=== PATIENT | male | born 1965 | race Caucasian/White ===

== ENCOUNTER 2023-03-22 07:30 | Outpatient (RCR) | payer OTHER, SELFPAY | END 2023-07-20 23:59 | disposition home or self-care (01) | PROVIDERS: PCP Family Medicine; Visit Provider Physician Assistant | DX: M54.40 Lumbago with sciatica, unspecified side (principal); Z74.09 Other reduced mobility; R29.898 Other symptoms and signs involving the musculoskeletal system; Z51.89 Encounter for other specified aftercare | CPT/HCPCS: 97110; 97140; 97162 ==

== ENCOUNTER 2023-10-18 07:30 | Outpatient (CLI) | payer OTHER, SELFPAY | END 2023-10-18 07:31 | disposition home or self-care (01) | LOC: INJ CL 07:32 | PROVIDERS: PCP Family Medicine; Visit Provider Family Medicine | DX: M54.16 Radiculopathy, lumbar region (principal); M51.36 Other intervertebral disc degeneration, lumbar region | CPT/HCPCS: 62323; J0702; Q9966 ==

== ENCOUNTER 2023-10-21 16:45 | Outpatient (RCR) | payer OTHER, SELFPAY | END 2024-01-17 15:10 | disposition home or self-care (01) | PROVIDERS: PCP Family Medicine; Visit Provider Family Medicine | DX: M25.551 Pain in right hip (principal); M54.50 Low back pain, unspecified; Z51.89 Encounter for other specified aftercare | CPT/HCPCS: 97110; 97161 ==

== ENCOUNTER 2023-12-03 10:28 | Outpatient (CLI) | payer OTHER, SELFPAY | END 2023-12-03 10:29 | disposition home or self-care (01) | LOC: INJ CL 10:29 | PROVIDERS: PCP Family Medicine; Visit Provider Family Medicine | DX: M47.816 Spondylosis without myelopathy or radiculopathy, lumbar region (principal) | CPT/HCPCS: 64493; J0702; Q9966 ==

== ENCOUNTER 2024-01-03 16:45 | Outpatient (RCR) | payer OTHER, SELFPAY | END 2024-03-17 14:11 | disposition home or self-care (01) | PROVIDERS: PCP Family Medicine; Visit Provider Family Medicine | DX: M47.816 Spondylosis without myelopathy or radiculopathy, lumbar region (principal); M51.36 Other intervertebral disc degeneration, lumbar region; Z51.89 Encounter for other specified aftercare; M54.17 Radiculopathy, lumbosacral region | CPT/HCPCS: 97032; 97110; 97140; 97161; 97535 ==

== ENCOUNTER 2024-01-28 19:54 | Outpatient (CLI) | payer OTHER, SELFPAY | END 2024-01-28 19:55 | disposition home or self-care (01) | LOC: AMB 01-31 05:33 | PROVIDERS: PCP Family Medicine; Visit Provider Emergency Medicine | DX: S09.90XA Unspecified injury of head, initial encounter (principal); W10.9XXA Fall (on) (from) unspecified stairs and steps, initial encounter; Y92.008 Other place in unspecified non-institutional (private) residence as the place of occurrence of the external cause | CPT/HCPCS: A0425; A0427 ==

== ENCOUNTER 2024-05-29 07:17 | Inpatient (IN) | payer OTHER, SELFPAY ==
[2024-05-29] VITALS (32 sets, daily range): BP systolic 154–1701; BP diastolic 86–107; PULSE 63–114; RESP 18–26; TEMP 36.7–37.7; O2SAT 84–98; BMI 26.6; BMI 27.7
--- NOTE | 2024-05-29 07:54 | CRLHL7_ITS ---
For Patients: As a result of the Century Cures Act, medical imaging exams and procedure reports are released immediately into your electronic medical record. You may view this report before your referring provider. If you have questions, please contact your health care provider. INDICATION: Shortness of breath, post lumbar fusion surgery TECHNIQUE: Chest 2 views. COMPARISON: Chest radiograph 06/06/2019 FINDINGS: Cardiovascular and mediastinum: Heart size is normal. Unremarkable mediastinum. Lungs and pleural spaces: Lungs are clear. No sign of infiltrate or mass. No sign of pleural effusion. No pneumothorax. Bones and soft tissues: Moderate degenerative disease of the thoracic spine. IMPRESSION: No acute or significant findings. Dictated by Selene Calero MD @ 05/29/2024 8:24:42 AM (Electronically Signed)
[2024-05-29 08:11] LABS: Basophils Percent Auto 0.8 % (0.0-3.0); Eosinophils Percent Auto 0.8 % (0.0-7.0); Hematocrit 37.8 % (37.0-53.0); Hemoglobin* 12.6 gm/dL (13.5-17.5); Immature Granulocytes Pct Auto 0.4 %; Lymphocytes Percent Auto 23.6 % (20-44); Mean Corpuscular HGB Conc 33 gm/dL (32-36); Mean Corpuscular Hemoglobin 33 pg (26-34); Mean Corpuscular Volume 99 fL (80-100); Monocytes Percent Auto 16.7 % (0.0-11.0); Neutrophils Percent Auto 57.7 % (42.0-72.0); RDW Coefficient of Variation % 13.1 % (11.5-15.5); Red Blood Count 3.82 m/uL (4.30-5.90); White Blood Count* 2.46 K/uL (4.50-11.00)
--- NOTE | 2024-05-29 08:17 | ED_ITS ---
HPI - General Adult General Chief complaint: Weakness Stated complaint: Post surgical complication Time Seen by Provider: 05/29/24 07:53 Source: patient and family Mode of arrival: ambulatory Limitations: no limitations History of Present Illness HPI narrative: 58-year-old male presenting today with overall weakness. Patient states that he had back surgery on April 22 and was doing well postoperatively. Around weak to he was able to leave the house and go out to eat with family. States that his pain was well controlled and no longer needed pain medications. Perhaps a couple days after that he started to decline seen energy and strength. He states that he feels weak, has been having chills and shaking. Denies any measured fevers. Last night vomited 1 time and again this morning. Also had diarrhea this morning. Couple of days ago had difficulty urinating. believes that he has been dehydrated because he has little to no appetite for over a week. He also has a cough. Denies abdominal pain. Has a new rash on the left upper extremity that is nonpruritic. Past medical history significant for hypertension, depression, alcohol use disorder, tobacco use disorder, hyperlipidemia, history of stroke. Patient drinks 5-6 shots of liquor daily, smokes a half pack cigarettes per day Related Data Home Medications ?Medication ?Instructions ?Recorded ?Confirmed amlodipine 10 mg tablet 10 mg PO QDAY 01/22/22 atorvastatin 20 mg tablet 20 mg PO QDAY 01/22/22 bupropion HCl 150 mg 24 hr tablet, mg PO 01/22/22 extended release ibuprofen 200 mg tablet 600 mg PO PRN 01/22/22 losartan 50 mg tablet 50 mg PO QDAY 01/22/22 terazosin 5 mg capsule 5 mg PO QDAY 01/22/22 triamcinolone acetonide 0.1 % topical .as needed PRN 01/22/22 topical ointment Allergies Allergy/AdvReac Type Severity Reaction Status Date / Time lisinopril Allergy Severe Chest Pain Verified 05/29/24 09:27 Review of Systems Status of ROS: Reports: 10 or more systems reviewed and unremarkable except as noted in History and below [facility] Medical History Depression ?F32.A - Depression, unspecified (ICD-10) Hypertension ?I10 - Essential (primary) hypertension (ICD-10) History of stroke ?Z86.73 - Personal history of transient ischemic attack (TIA), and cerebral infarction without residual deficits (ICD-10) Hip pain ?M25.559 - Pain in unspecified hip (ICD-10) Alcoholic intoxication ?F10.929 - Alcohol use, unspecified with intoxication, unspecified (ICD-10) Surgical History History of back surgery ?Z98.890 - Other specified postprocedural states (ICD-10) History of 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) ?Z96.641 - Presence of right artificial hip joint (ICD-10) History of open reduction and internal fixation (ORIF) procedure (06/22/20) ?Z98.890 - Other specified postprocedural states (ICD-10) History of shoulder surgery (10/25/21) ?Z98.890 - Other specified postprocedural states (ICD-10) Family History Brother Alcohol dependence CHF (congestive heart failure) Father Bradycardia Stroke Mother Pacemaker Social History Smoking Status: Current every day smoker What tobacco products do you use: cigarettes Do you use any of these nicotine containing products: None Second hand tobacco smoke exposure: No How often do you have a drink containing alcohol: 4 or more times a week How many standard drinks containing alcohol do you have on a typical day: 3 or 4 How often do you have six or more drinks on one occasion: Weekly AUDIT-C Alcohol total score: 8 Non-prescribed substance use: denies use service: No Exam Narrative: Exam Narrative: Well-nourished well-developed patient in no acute distress. Alert and oriented x3. Answers questions appropriately. Mood and affect are appropriate. Thoughts are goal oriented and rational. No tangential or magical thinking noted. Patient speaks in full sentences without needing to catch his breath. HEENT: Normocephalic atraumatic. Pupils are equally round reactive to light. Extraocular muscles are intact. Conjunctivae are moist without any icterus noted. Moist mucous membranes. Posterior pharynx is normal. Neck is supple. Cardiovascular: Heart is regular rate and rhythm S1 and S2 are present without any murmurs. Lungs: End-expiratory wheezes bilaterally. Patient takes deep breaths without any discomfort. Abdomen: Soft and nontender nondistended with normal bowel sounds. No guarding or rebound. No masses or organomegaly appreciated. Extremities: Bilateral lower extremities are without edema. Normal DP and PT pulses. Skin: Well perfused. Patient has a petechial rash on the dorsal surface of the left hand going into the wrist. He also has the beginnings of petechial rashes on the bilateral lower extremities home wong areas. Rash on the upper extremities much more pronounced. Back: Normal appearance. Lumbar incision is healing appropriately without any evidence of infection or discomfort on palpation. Const: Vital Signs, click to edit/add: Vital Signs - 24 hr 05/29/24 07:27 05/29/24 07:54 05/29/24 08:18 Temperature 98.1 F Pulse Rate 63 Pulse Rate [Pulse Oximeter] 63 Respiratory Rate 24 Blood Pressure Blood Pressure [Ri ght Upper Arm] 200/102 H Pulse Oximetry 98 96 97 Oxygen Delivery Me thod Room Air 05/29/24 08:30 05/29/24 08:32 05/29/24 08:33 Temperature Pulse Rate 74 82 75 Pulse Rate [Pulse Oximeter] Respiratory Rate 22 Blood Pressure 177/99 H Blood Pressure [Ri ght Upper Arm] Pulse Oximetry 94 94 93 Oxygen Delivery Me thod 05/29/24 08:45 05/29/24 09:00 05/29/24 09:01 Temperature Pulse Rate 67 79 68 Pulse Rate [Pulse Oximeter] Respiratory Rate Blood Pressure 175/98 H Blood Pressure [Ri ght Upper Arm] Pulse Oximetry 93 86 L 84 L Oxygen Delivery Me thod 05/29/24 09:34 Temperature Pulse Rate 66 Pulse Rate [Pulse Oximeter] Respiratory Rate Blood Pressure Blood Pressure [Ri ght Upper Arm] Pulse Oximetry 94 Oxygen Delivery Me thod Course Course ED Course: EKG, read by me, shows normal sinus rhythm with a pulse of 66. Chest x-ray, read by me, does not show any acute pathology. CBC shows pancytopenia. Significantly Elevated D-dimer. Proceeded with chest CT PE protocol which did not show a PE but did show a potential foreign body in the trachea. I consulted with Dr. Ruiz, ditching machine operating engineer at [facility]. Recommends an out patient brochoscope. Unclear if this is the foreign body verses and accessory pathway. Remainder of blood work showed normal chemistries. Elevated lactate at 2.8. Normal CRP. LFTs unremarkable. Normal troponin. Normal lipase. Urine did show 3+ protein, 2+ blood and 10-25 RBCs. Triple swab negative. Patient received a L of normal saline while he was down here. Discussed patient with Dr. Soto who is accepting the patient for admission. Of note, patient does desaturate into the upper 80s when he falls asleep. Vital Signs Vital signs: Initial Vital Signs Temperature 98.1 F 05/29/24 07:27 Temperature Source Temporal Artery Scan 05/29/24 07:27 Pulse Rate 63 05/29/24 07:27 Pulse Rhythm Regular 05/29/24 07:27 Respiratory Rate 24 05/29/24 07:27 Blood Pressure 200/102 H 05/29/24 07:27 Blood Pressure Mean 134 H 05/29/24 07:27 Blood Pressure Position Supine 05/29/24 07:27 Pulse Oximetry 98 05/29/24 07:27 Oxygen Delivery Method Room Air 05/29/24 07:27 Vital Signs Temperature 98.1 F 05/29/24 07:27 Pulse Rate 63 05/29/24 07:27 Respiratory Rate 24 05/29/24 07:27 Blood Pressure 200/102 H 05/29/24 07:27 Pulse Oximetry 98 05/29/24 07:27 Oxygen Delivery Method Room Air 05/29/24 07:27 Temperature 98.1 F 05/29/24 07:27 Pulse Rate 66 05/29/24 09:34 Respiratory Rate 22 05/29/24 08:32 Blood Pressure 175/98 H 05/29/24 09:01 Pulse Oximetry 94 05/29/24 09:34 Oxygen Delivery Method Room Air 05/29/24 07:27 Medications Administered Medications: Discontinued Medications Generic Name Dose Route Start Last Admin Trade Name Freq PRN Reason Stop Dose Admin Sodium Chloride 1,000 mls @ 1,000 mls/hr 05/29/24 09:00 05/29/24 10:12 0.9 % Sodium Chloride 1000 Ml IV 05/29/24 09:59 Infused .Q1H SHYANNE Infusion Lorazepam 0.5 mg 05/29/24 08:51 05/29/24 09:04 Lorazepam 2 Mg/Ml Inj IVP 05/29/24 08:52 0.5 mg ONCE ONE Administration Ondansetron HCl 4 mg 05/29/24 08:51 05/29/24 08:56 Ondansetron 2 Mg/Ml Inj IVP 05/29/24 08:52 4 mg ONCE ONE Administration Medical Decision Making MDM Narrative Medical decision making narrative: A 58-year-old male with chronic alcohol use disorder, weakness, pancytopenia and hematuria. Patient will be admitted for further management. Lab Data Lab results reviewed: Yes I reviewed the patient's lab results Labs: Lab Results 05/29/24 05/29/24 05/29/24 Range/Units 07:55 08:00 Unknown WBC 2.46 L (4.50-11.00) K/uL RBC 3.82 L (4.30-5.90) m/uL Hgb 12.6 L (13.5-17.5) gm/dL Hct 37.8 (37.0-53.0) % MCV 99 (80-100) fL MCH 33 (26-34) pg MCHC 33 (32-36) gm/dL RDW Coeff of Josue 13.1 (11.5-15.5) % Plt Count 38 L* (140-440) K/uL Neut % (Auto) 57.7 (42.0-72.0) % Lymph % (Auto) 23.6 (20-44) % [place] % (Auto) 16.7 H (0.0-11.0) % Eos % (Auto) 0.8 (0.0-7.0) % Baso % (Auto) 0.8 (0.0-3.0) % Neut # (Auto) 1.40 L (1.7-7.0) K/uL Lymph # (Auto) 0.60 L (0.90-2.90) K/uL [place] # (Auto) 0.40 (0.00-0.90) K/UL Eos # (Auto) 0.00 (0.00-0.50) K/uL Baso # (Auto) 0.00 (0.00-0.30) K/uL Abs Immat Gran (auto) 0.00 (0.00-0.30) K/uL Imm/Tot Granulo (auto) 0.4 % Diff Slide Review Acceptable Review (Acceptable) D-Dimer Quant (PE/DVT) 6.74 H (0.00-0.50) ug/ml Sodium 136 (135-149) mmol/L Potassium 3.7 (3.6-5.1) mmol/L Chloride 104 (96-114) mmol/L Carbon Dioxide 23 (20-32) mmol/L Anion Gap 9 (7-15) mEq/L BUN 9 (7-30) mg/dL Creatinine 0.6 (0.5-1.5) mg/dL Estimated Creat Clear 126.67 Estimated GFR 111 ml/min Glucose 112 (60-115) mg/dL Lactate 2.8 H (0.5-1.9) mmol/L Calcium 9.5 (8.4-10.6) mg/dL Total Bilirubin 0.5 (0.1-1.5) mg/dL Direct Bilirubin 0.2 (0.0-0.5) mg/dL AST 86 H (12-35) U/L ALT 34 (4-50) U/L Alkaline Phosphatase 103 (40-150) U/L Troponin I 0.02 (0.01-0.04) ng/mL C-Reactive Protein < 0.5 L (0.5-1.0) mg/dL Total Protein 7.0 (6.0-8.3) g/dL Albumin 3.8 (3.3-5.0) g/dL Lipase 236 (23-300) U/L Urine Color Yellow (Yellow) Urine Appearance Clear (Clear) Urine pH 7.0 (5.0-8.5) Ur Specific [place] 1.025 (1.000-1.030) Urine Protein 3+ A (Negative) Urine Glucose (UA) Negative (Negative) Urine Ketones Negative (Negative) Urine Blood 2+ A (Negative) Urine Nitrite Negative (Negative) Urine Bilirubin Negative (Negative) Urine Urobilinogen 0.2 (0.2-1.0) Ur Leukocyte Esterase Negative (Negative) Urine RBC 10-25 A (0-2) Urine WBC 0-2 (0-5) Ur Squamous Epith Cells None (None-Few) Urine Bacteria Few A (None) SARS-CoV-2 (PCR) Negative SARS-CoV-2 (Negative) Influenza Type A (PCR) Negative PCR FLU A (Negative) Influenza Type B (PCR) Negative PCR FLU B (Negative) RSV (PCR) Negative PCR RSV (Negative) Imaging Data Chest x-ray: Attestation: I have reviewed the pertinent imaging results. Radiologist's impression: Chest 2 views. COMPARISON: Chest radiograph 06/06/2019 FINDINGS: Cardiovascular and mediastinum: Heart size is normal. Unremarkable mediastinum. Lungs and pleural spaces: Lungs are clear. No sign of infiltrate or mass. No sign of pleural effusion. No pneumothorax. Bones and soft tissues: Moderate degenerative disease of the thoracic spine. IMPRESSION: No acute or significant findings. CT scan - chest: Attestation: I have reviewed the pertinent imaging results. Radiologist's impression: CT chest PE was acquired with 95 cc Isovue 370 air IV contrast. COMPARISON: Same day chest radiograph FINDINGS: Heart and vasculature: Contrast opacification of the pulmonary arterial tree is adequate. No sign of pulmonary embolism. Heart size is normal. Top-normal ascending aorta measuring 3.8 cm and main pulmonary artery measuring 3.4 cm. Moderate coronary artery calcifications. Lungs and pleura: Thin linear radiolucent structure in the mid trachea measuring approximately 3.3 cm in craniocaudal dimension (6/148). No suspicious nodules or infiltrates. Left linear atelectasis. No pleural effusions, pleural thickening, or pneumothorax. Lymph nodes/mediastinum: No mediastinal, hilar, or axillary adenopathy. Chest wall: No masses. Upper abdomen: Hepatic steatosis Bones: Unremarkable for age. IMPRESSION: 1. No evidence of acute pulmonary embolism. 2. Thin linear radiolucent structure in the mid trachea measuring approximately 3.3 cm in craniocaudal dimension. This is indeterminate for tracheal debris or foreign body. Consider endoscopic evaluation. 3. Hepatic steatosis. ECG Data Attestation: I personally reviewed and interpreted this ECG as follows: Discharge Plan Discharge Clinical Impression: Weakness, Alcohol use disorder, Pancytopenia, Hematuria Patient Disposition: Admitted As Observation Condition: Stable Prescriptions: No Action bupropion HCl 150 mg tablet extended release 24 hr PO ibuprofen 200 mg tablet 600 mg PO PRN triamcinolone acetonide 0.1 % ointment topical .as needed PRN amlodipine 10 mg tablet 10 mg PO QDAY atorvastatin 20 mg tablet 20 mg PO QDAY terazosin 5 mg capsule 5 mg PO QDAY losartan 50 mg tablet 50 mg PO QDAY Follow Up/Referrals: Ward Kimble MD [Primary Care Provider] -
[2024-05-29 08:22] LABS: Platelet Count* 38 K/uL (140-440); Slide Review Reflex Yes
--- NOTE | 2024-05-29 08:24 | ED.NURSE ---
Critical platelet count 35, MD aware.
[2024-05-29 08:25] LABS: Albumin* 3.8 g/dL (3.3-5.0)
[2024-05-29 08:26] LABS: Chloride* 104 mmol/L (96-114); Potassium* 3.7 mmol/L (3.6-5.1); Sodium* 136 mmol/L (135-149)
[2024-05-29 08:28] LABS: Alanine Aminotransferase* 34 U/L (4-50); Alkaline Phosphatase* 103 U/L (40-150); Aspartate Amino Transferase* 86 U/L (12-35); Bilirubin Direct* 0.2 mg/dL (0.0-0.5); Bilirubin Total* 0.5 mg/dL (0.1-1.5); Creatinine* 0.6 mg/dL (0.5-1.5); Est. Creatinine Clearance* 126.67; Estimated Glomerular Filt Rate 111 ml/min
[2024-05-29 08:29] LABS: Anion Gap 9 mEq/L (7-15); Blood Urea Nitrogen* 9 mg/dL (7-30); Carbon Dioxide* 23 mmol/L (20-32); Glucose* 112 mg/dL (60-115)
[2024-05-29 08:30] LABS: Calcium* 9.5 mg/dL (8.4-10.6)
[2024-05-29 08:32] LABS: Slide Review Acceptable Review (Acceptable)
[2024-05-29 08:33] LABS: Lactate* 2.8 mmol/L (0.5-1.9)
[2024-05-29 08:37] LABS: C Reactive Protein* < 0.5 mg/dL (0.5-1.0)
[2024-05-29 08:40] LABS: Troponin I* 0.02 ng/mL (0.01-0.04)
[2024-05-29 08:45] LABS: D Dimer Quantitative* 6.74 ug/ml (0.00-0.50)
[2024-05-29 08:48] LABS: Lipase* 236 U/L (23-300)
[2024-05-29] MEDS: 0.9 % SODIUM CHLORIDE 1000 ml 1,000 ML IV (08:55)
[2024-05-29] MEDS: ONDANSETRON 2 MG/ML inj 4 MG IVP (08:56)
--- NOTE | 2024-05-29 09:03 | CRLHL7_ITS ---
For Patients: As a result of the Century Cures Act, medical imaging exams and procedure reports are released immediately into your electronic medical record. You may view this report before your referring provider. If you have questions, please contact your health care provider. INDICATION: Shortness of breath, elevated D-dimer, recent lumbar fusion TECHNIQUE: CT chest PE was acquired with 95 cc Isovue 370 air IV contrast. COMPARISON: Same day chest radiograph FINDINGS: Heart and vasculature: Contrast opacification of the pulmonary arterial tree is adequate. No sign of pulmonary embolism. Heart size is normal. Top-normal ascending aorta measuring 3.8 cm and main pulmonary artery measuring 3.4 cm. Moderate coronary artery calcifications. Lungs and pleura: Thin linear radiolucent structure in the mid trachea measuring approximately 3.3 cm in craniocaudal dimension (6/148). No suspicious nodules or infiltrates. Left linear atelectasis. No pleural effusions, pleural thickening, or pneumothorax. Lymph nodes/mediastinum: No mediastinal, hilar, or axillary adenopathy. Chest wall: No masses. Upper abdomen: Hepatic steatosis Bones: Unremarkable for age. IMPRESSION: 1. No evidence of acute pulmonary embolism. 2. Thin linear radiolucent structure in the mid trachea measuring approximately 3.3 cm in craniocaudal dimension. This is indeterminate for tracheal debris or foreign body. Consider endoscopic evaluation. 3. Hepatic steatosis. Please note that all CT scans at this facility use dose modulation, iterative reconstruction, and/or weight-based dosing when appropriate to reduce radiation dose to as low as reasonably achievable. Dictated by Mariam Abdi MD @ 05/29/2024 9:52:36 AM (Electronically Signed)
[2024-05-29] MEDS: LORazepam 2 MG/ML inj 0.5 MG IVP (09:04)
[2024-05-29 09:13] LABS: PCR FLU A Negative PCR FLU A (Negative); PCR FLU B Negative PCR FLU B (Negative); PCR RSV Negative PCR RSV (Negative); SARS PCR* Negative SARS-CoV-2 (Negative)
--- NOTE | 2024-05-29 09:15 | ED.NURSE ---
sats had dropped to low 80s. dr solis informed and placed 02 at 1l nc to increase sats to greater or equal 90%. admits that she has noted that his sats do get down in the 80s at home so she rehydrates him and takes deep breaths. does smoke.
[2024-05-29 09:43] LABS: Appearance Urine Clear (Clear); Bilirubin Urine Negative (Negative); Blood Urine 2+ (Negative); Color Urine Yellow (Yellow); Glucose Urine Negative (Negative); Ketones Urine Negative (Negative); Leukocyte Esterase Urine Negative (Negative); Nitrite Urine Negative (Negative); Protein Urine 3+ (Negative); Specific Gravity Urine 1.025 (1.000-1.030); Urobilinogen Urine 0.2 (0.2-1.0)
[2024-05-29 09:44] LABS: Bacteria Urine Few; WBC Urine 0-2 (0-5)
--- NOTE | 2024-05-29 11:00 | PM.IMHP1 ---
Hospitalist- H&P: HPI History of Present Illness Date Seen: 05/29/24 Chief complaint: Post surgical complication Narrative: Reilly Che is a 58 year old male who presented to the ER this morning with his for weakness. He's felt poorly for the past 10-14 days, has had vomiting and diarrhea over the past 2 days. No recent travel or sick contacts. No fevers. Had back surgery with Dr. Be on 04/22/24 (bilateral hemilaminotomies L4-L5, foraminal decompression L3-4 and L4-5/lumbar interbody and posterior fusion at L4-L5, PEEK interbody spacer at L4-L5. No operative or anesthetic complications during procedure. He did have postoperative hypotension, and many of his home blood pressure medications were stopped upon discharge. Canones great for the first two weeks postoperatively. No worsening pain, erythema, or drainage over surgical site. ER Course and Findings: - Hgb 12.6, platelets 38, WBC 2.46 (previous CBC in record normal, but this is from 2019) - lactate 2.8 - 10-25 RBCs on UA - with activity, noted to oxygen saturation in the 84-85% range, supplemental oxygen applied - elevated D-dimer, no acute PE on imaging but notable linear radiolucent structure in mid-trachea (indeterminate) - Dr. Phillips reviewed imaging findings with pulmonology, who felt that outpatient follow-up for this appropriate as there was no indication for acute intervention and no history of aspiration Given patient's weakness, intolerance of p.o. intake, pancytopenia, and hypoxic respiratory failure, he is admitted to the hospital. Lo present for H&P. Reilly endorses daily alcohol use (at least 6-7 shots of vodka daily), no history of significant withdrawal in the past. PCP is Dr. Kimble at the [facility]. Review of Systems Status of ROS: Reports: 10 or more systems reviewed and unremarkable except as noted in History and below Narrative: - rash noted over L hand/forearm in the last few days - intermittent morning cough, no hemoptysis - no bleeding gums - + easy bruising - no abdominal pain PFSH [facility] Medical History (Updated 05/29/24 @ 14:03 by Tiffanie Berger MD) Depression ?F32.A - Depression, unspecified (ICD-10) Hypertension ?I10 - Essential (primary) hypertension (ICD-10) History of stroke ?Z86.73 - Personal history of transient ischemic attack (TIA), and cerebral infarction without residual deficits (ICD-10) Hip pain ?M25.559 - Pain in unspecified hip (ICD-10) Surgical History (Updated 05/29/24 @ 12:47 by Tiffanie Berger MD) Status post left rotator cuff repair ?Z98.890 - Other specified postprocedural states (ICD-10) History of back surgery ?Z98.890 - Other specified postprocedural states (ICD-10) History of 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) ?Z96.641 - Presence of right artificial hip joint (ICD-10) History of open reduction and internal fixation (ORIF) procedure (06/22/20) ?Z98.890 - Other specified postprocedural states (ICD-10) History of shoulder surgery (10/25/21) ?Z98.890 - Other specified postprocedural states (ICD-10) Family History (Updated 05/29/24 @ 13:00 by Tiffanie Berger MD) Brother Alcohol dependence CHF (congestive heart failure) Father Bradycardia Stroke Mother Pacemaker CLL (chronic lymphocytic leukemia) Social History (Updated 05/29/24 @ 13:03 by Tiffanie Berger MD) Narrative: Lives with Lo (medical decision maker if needed), 4 adult children. Daily ETOH use, smokes 1/2 ppd. 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 What is your current living situation?: I presently have a place to live Problems where you live: no known problems Problems where you live details: 3 stairs up to living room from kitchen. 3 stairs outside into house In the past 12 months, utilities in danger of being shut off: no In the past 12 mos, have been you worried that your food would run out before you had money to buy more?: never true In the past 12 mos, the food you bought just didn't last and you didn't have money to buy more?: never true Highest level of school completed/degree received: Associate degree: occupational, technical, vocational program Smoking Status: Current every day smoker What tobacco products do you use: cigarettes Smoking packs per day: 10 Smoking cigarettes per day: 200.0 Smoking quit date/years: >15 years ago Do you use any of these nicotine containing products: None Second hand tobacco smoke exposure: Yes How often do you have a drink containing alcohol: 4 or more times a week Alcohol type: other Alcohol type details: vodka How many standard drinks containing alcohol do you have on a typical day: 5 or 6 How often do you have six or more drinks on one occasion: Daily or almost daily AUDIT-C Alcohol total score: 10 Non-prescribed substance use: denies use Caffeine: Yes (coffee) How often does anyone, including family, friends and others, physically hurt you: never How often does anyone, including family, friends and others, insult or talk down to you: never How often does anyone, including family, friends and others, threaten you with harm: never How often does anyone, including family, friends and others, scream or curse at you: never service: No Meds Home Medications and Allergies Home Medications ?Medication ?Instructions ?Recorded ?Confirmed ?Type losartan 50 mg tablet 50 mg PO QDAY 01/22/22 05/29/24 History terazosin 5 mg capsule 5 mg PO QDAY 01/22/22 05/29/24 History celecoxib 200 mg capsule 200 mg PO BID 05/29/24 05/29/24 History gabapentin 300 mg capsule 300 mg PO 3XD 05/29/24 05/29/24 History metoprolol succinate 25 mg 25 mg PO BID 05/29/24 05/29/24 History tablet,extended release 24 hr omeprazole 20 mg capsule,delayed 20 mg PO DAILY 05/29/24 05/29/24 History release Home Medication Comments: - confirmed with (primarily manages his medications) Allergies Allergy/AdvReac Type Severity Reaction Status Date / Time lisinopril Allergy Severe Chest Pain Verified 05/29/24 09:27 Exam Narrative: Exam Narrative: GEN: Alert and oriented, answering questions appropriately HEENT: Normal external ears, EOMIs bilaterally, no scleral icterus CV: RRR, No concerning murmurs R: No wheezing, mild bibasilar rhonchi, clears with deep breath Ab: Mild distention, + fluid wave. No caput medusae Back: Incision from recent surgery is well healed without erythema, edema, or drainage Ext: Trace BLE edema Skin: [place] rash over L lateral forearm/thumb, + blanching. No vesicles, no purpura, no spider angiomata Neuro: No focal deficits, no asterixis. Mild shakiness without resting tremor. Gait not observed Psych: Appropriate Const: Vital Signs, click to edit/add: Vital Signs - 24 hr 05/29/24 07:27 05/29/24 07:54 05/29/24 08:18 Temperature 98.1 F Pulse Rate 63 Pulse Rate [Pulse Oximeter] 63 Respiratory Rate 24 Blood Pressure Blood Pressure [Ri ght Upper Arm] 200/102 H Pulse Oximetry 98 96 97 [facility] 05/29/24 08:30 05/29/24 08:32 05/29/24 08:33 Temperature Pulse Rate 74 82 75 Pulse Rate [Pulse Oximeter] Respiratory Rate 22 Blood Pressure 177/99 H Blood Pressure [Ri ght Upper Arm] Pulse Oximetry 94 94 93 [facility] 05/29/24 08:45 05/29/24 09:00 05/29/24 09:01 Temperature Pulse Rate 67 79 68 Pulse Rate [Pulse Oximeter] Respiratory Rate Blood Pressure 175/98 H Blood Pressure [Ri ght Upper Arm] Pulse Oximetry 93 86 L 84 L [facility] 05/29/24 09:34 Temperature Pulse Rate 66 Pulse Rate [Pulse Oximeter] Respiratory Rate Blood Pressure Blood Pressure [Ri ght Upper Arm] Pulse Oximetry 94 [facility]xygen [facility] - H&P: Result Labs Labs: Short CBC 05/29/24 Range/Units 08:00 WBC 2.46 L (4.50-11.00) K/uL Hgb 12.6 L (13.5-17.5) gm/dL Hct 37.8 (37.0-53.0) % Plt Count 38 L* (140-440) K/uL BMP 05/29/24 08:00 Sodium 136 Potassium 3.7 Chloride 104 Carbon Dioxide 23 BUN 9 Creatinine 0.6 Glucose 112 Calcium 9.5 Cardiac Enzymes 05/29/24 Range/Units 08:00 Troponin I 0.02 (0.01-0.04) ng/mL Liver Function 05/29/24 Range/Units 08:00 Total Bilirubin 0.5 (0.1-1.5) mg/dL Direct Bilirubin 0.2 (0.0-0.5) mg/dL AST 86 H (12-35) U/L ALT 34 (4-50) U/L Alkaline Phosphatase 103 (40-150) U/L Albumin 3.8 (3.3-5.0) g/dL Urine 05/29/24 Range/Units Unknown Urine Color Yellow (Yellow) Urine Appearance Clear (Clear) Urine pH 7.0 (5.0-8.5) Ur Specific [place] 1.025 (1.000-1.030) Urine Protein 3+ A (Negative) Urine Glucose (UA) Negative (Negative) Assessment and Plan Assessment and plan (1) Pancytopenia: Problem comment: - ddx: bone marrow suppression 2/2 ETOH use, infection, malignancy - peripheral smear and LDH ordered, follow CBC - likely stigmata of chronic ETOH use, will also order an ultrasound to evaluate for cirrhosis (known steatosis of liver) Status: Acute (2) Acute hypoxic respiratory failure: Problem comment: - source unclear, does not appear related to incidental tracheal mass - no acute infectious process on Chest CT, negative COVID/flu/influenza. Does not appear to have pulmonary edema - supplemental oxygen as needed Status: Acute (3) Hematuria: Problem comment: - related to thrombocytopenia vs other renal process - ultrasound to evaluate Status: Acute (4) Alcohol use disorder: Problem comment: - daily ETOH, last drink 05/28 at 1930 - associated findings: pancytopenia, elevated LFTs - continue Gabapentin, follow CIWA with prn Ativan - initiate Phenobarbital 05/29 Status: Acute (5) Weakness: Problem comment: - therapies ordered Status: Acute (6) Hypertension: Problem comment: - Hypotensive in March after surgery, multiple medications stopped at that time - continue current home medications (metoprolol and losartan), manage alcohol withdrawal Status: Acute (7) Mass of trachea: Problem comment: - incidentally noted on 05/29/2024 imaging in the emergency room - presumably related to recent surgery/intubation - Dr. Phillips in the ER reviewed this with [facility] (Sara); recommend outpatient bronchoscopy - transfer to higher level of care with any new symptoms/decompensation Status: Acute Plan - per above - Lo updated at bedside, questions answered
[2024-05-29 11:15] LABS: Immature Reticulocyte Fraction 5.4 % (2.3-13.4); Reticulocyte Hemoglobin Equivi 36.5 pg (29.0-35.0); Reticulocyte Percent 1.6 % (0.5-2.0); Reticulocytes Absolute 0.06 # (0.03-0.08)
[2024-05-29 11:26] LABS: Prothrombin Time 12.7 Seconds
--- NOTE | 2024-05-29 11:28 | CRLHL7_ITS ---
For Patients: As a result of the Century Cures Act, medical imaging exams and procedure reports are released immediately into your electronic medical record. You may view this report before your referring provider. If you have questions, please contact your health care provider. INDICATION: Abnormal LFTs. Hematuria. COMPARISON: Same day CT angiogram of the chest. TECHNIQUE: Grayscale and limited color Doppler abdominal ultrasound. FINDINGS: Liver: Diffuse homogeneous increased hepatic parenchymal echotexture consistent with steatosis. Differential diagnostic considerations include chronic hepatitis and cirrhosis. Smooth contour. No suspicious focal lesion. No intrahepatic biliary ductal dilatation. Normal hepatopedal phasic portal venous blood flow. Main portal vein caliber is 10 mm, within normal limits. Gallbladder: Nondistended. Free of stones or significant sludge. Normal wall thickness. Negative sonographic Vásquez sign. CBD: 3mm Pancreas: Normal where visualized. The pancreas is partially obscured and therefore incompletely evaluated. Kidneys: Solid heterogeneous exophytic lateral interpolar right renal cortical mass measuring 3.7 cm in greatest dimension. No internal vascularity on color Doppler. No suspicious left renal cortical lesion. No hydronephrosis. No convincing sonographic evidence of nephrolithiasis. Spleen: Homogenous in echotexture. No focal lesion. Normal craniocaudal length (9.4 cm). Midline Vasculature: Visualized aorta and cava are without significant findings. Peritoneal Cavity: No significant ascites. Additional Findings: None. IMPRESSION: 1. Diffuse homogeneous increased hepatic parenchymal echotexture consistent with steatosis. Differential diagnostic considerations include chronic hepatitis and cirrhosis. 2. Solid heterogeneous exophytic lateral interpolar right renal cortical mass measuring 3.7 cm in greatest dimension. No internal vascularity on color Doppler. No corresponding finding on the same day CT of the chest. Renal mass protocol CT or MRI is recommended for further evaluation. RECOMMENDATION: Renal mass protocol CT or MRI, which can be performed in a nonacute care setting. Dictated by Cristopher Allen MD @ 05/29/2024 1:20:54 PM (Electronically Signed)
[2024-05-29 12:08] LABS: Partial Thromboplastin Time* 27 Seconds (23-33)
[2024-05-29 13:30] LABS: Lactate* 0.7 mmol/L (0.5-1.9)
[2024-05-29 13:58] LABS: Lactate Dehydrogenase* 263 U/L (120-246)
[2024-05-29] MEDS: PANTOPRAZOLE SODIUM 40 MG INJ IVP (14:01)
[2024-05-29] MEDS: PHENobarbitaL 260 MG in 0.9 % SODIUM CHLORIDE 100 ml 100 ML 208 MG IVPB (14:01)
[2024-05-29] MEDS: GABAPENTIN 300 MG CAPSULE PO ×2 (14:02→20:07)
[2024-05-29] MEDS: THIAMINE 100 MG TABLET PO (14:02)
[2024-05-29] MEDS: LOSARTAN POTASSIUM 50 MG TABLET PO (14:10)
[2024-05-29] MEDS: TERAZOSIN HCL 5 MG CAPSULE PO ×2 (14:12→20:07)
[2024-05-29] MEDS: NICOTINE 7 MG PATCH 1 PATCH TRANSDERMA (14:23)
[2024-05-29] MEDS: 0.9 % SODIUM CHLORIDE 1000 ml 1,000 ML 125 ML IV ×2 (15:05→22:49)
--- NOTE | 2024-05-29 18:27 | PC.NURSE ---
shift note: pt to rm 1110 via WC. pt tremulous on admit and states he's cold. Margot gomes applied for 30 mins with pt feeling warmer. ciwa 5,5,6,1. IV patent rt hand. LS dim. pt had moderate loose bm. No nausea. pt tolerating clrs.
[2024-05-29] MEDS: METOPROLOL SUCCINATE (XL) 25 MG TAB PO (20:06)
[2024-05-29] MEDS: SODIUM CHLORIDE 0.9 % (FLUSH) 10 ML SYRINGE 5 ML IVF (20:07)
[2024-05-30] VITALS (14 sets, daily range): BP systolic 161–173; BP diastolic 94–106; PULSE 69–94; RESP 16–20; TEMP 36.6–37.6; O2SAT 91–95
[2024-05-30] MEDS: 0.9 % SODIUM CHLORIDE 1000 ml 1,000 ML 125 ML IV (06:29)
[2024-05-30 06:38] LABS: Basophils Percent Auto 0.2 % (0.0-3.0); Eosinophils Percent Auto 1.7 % (0.0-7.0); Hematocrit 35.2 % (37.0-53.0); Hemoglobin* 11.5 gm/dL (13.5-17.5); Immature Granulocytes Pct Auto 0.5 %; Lymphocytes Percent Auto 15.7 % (20-44); Mean Corpuscular HGB Conc 33 gm/dL (32-36); Mean Corpuscular Hemoglobin 33 pg (26-34); Mean Corpuscular Volume 101 fL (80-100); Monocytes Percent Auto 12.8 % (0.0-11.0); Neutrophils Percent Auto 69.1 % (42.0-72.0); RDW Coefficient of Variation % 13.1 % (11.5-15.5); White Blood Count* 4.14 K/uL (4.50-11.00)
[2024-05-30 06:46] LABS: Chloride* 104 mmol/L (96-114); Potassium* 3.5 mmol/L (3.6-5.1); Sodium* 132 mmol/L (135-149)
[2024-05-30 06:47] LABS: Albumin* 2.9 g/dL (3.3-5.0)
[2024-05-30 06:49] LABS: Anion Gap 3 mEq/L (7-15); Blood Urea Nitrogen* 7 mg/dL (7-30); Carbon Dioxide* 25 mmol/L (20-32); Creatinine* 0.8 mg/dL (0.5-1.5); Estimated Glomerular Filt Rate 101 ml/min; Gamma Glutamyl Transpeptidase* 101 U/L (8-55); Glucose* 87 mg/dL (60-115)
[2024-05-30 06:50] LABS: Alanine Aminotransferase* 26 U/L (4-50); Alkaline Phosphatase* 66 U/L (40-150); Aspartate Amino Transferase* 67 U/L (12-35); Bilirubin Direct* 0.2 mg/dL (0.0-0.5); Bilirubin Total* 0.4 mg/dL (0.1-1.5); Calcium* 8.2 mg/dL (8.4-10.6); Total Protein* 5.7 g/dL (6.0-8.3)
--- NOTE | 2024-05-30 07:05 | PC.NURSE ---
END OF SHIFT NOTE: PT A&O. PT REMAINED IN BED THROUGHOUT SHIFT. USING URINAL IN BED. DENIES CP, SOB, N/V. PT HTN 167/97, 170/107, 167/105. DR. Solo UPDATED WITH NO NEW ORDERS AT THIS TIME. NICOTINE PATCH PRESENT TO RIGHT SHOULDER. WEENED OFF OF SUPPLEMENTAL OXYGEN SPO2 IN LOW 90'S ON RA. NS@125ML/HR TO RIGHT HAND. - RICARDO CALLED IN @0151 FOR UPDATE. UNEVENTFUL NIGHT. CIWA SCORES 2, 3, 1.
[2024-05-30 07:11] LABS: Platelet Count* 40 K/uL (140-440); Slide Review Reflex Yes
[2024-05-30 07:37] LABS: INR 1.03 (0.91-1.10); Prothrombin Time 14.2 Seconds
[2024-05-30 07:40] LABS: Slide Review Acceptable Review (Acceptable)
--- NOTE | 2024-05-30 07:52 | P.IMPN_ITS ---
Progress Note: A&P Assessment and plan (1) Pancytopenia: Problem details: - most likely 2/2 bone marrow suppression from ETOH use, ddx includes infection, malignancy - peripheral smear and HIV pending, follow CBC Status: Acute (2) Alcohol use disorder: Problem details: - daily ETOH, last drink 05/28 at 1930 - associated findings: pancytopenia, hyponatremia, elevated AST - continue Gabapentin, follow CIWA with prn Ativan - initiated Phenobarbital 05/29 - possible cirrhosis on u/s 05/29, recommend outpatient referral to GI for management - current MELD score of 6 Status: Acute (3) Acute hypoxic respiratory failure: Problem details: - source unclear, does not appear related to incidental tracheal mass - no acute infectious process on Chest CT, negative COVID/flu/influenza - TTE 05/30 - supplemental oxygen as needed Status: Acute (4) HFrEF (heart failure with reduced ejection fraction): Problem details: - awaiting formal Cardiology read of TTE, initial EF appears close to 45% - continue ARB and BB, add Spironolactone for GMDT + liver disease Status: Acute (5) Hematuria: Problem details: - related to thrombocytopenia vs other renal process - ultrasound reveals incidental R renal mass, outpatient workup recommended Status: Acute (6) Weakness: Problem details: - therapies ordered Status: Acute (7) Hypertension: Problem details: - Hypotensive in March after surgery, multiple medications stopped at that time - continue current home medications (metoprolol and losartan), manage alcohol withdrawal Status: Acute (8) Mass of trachea: Problem details: - incidentally noted on 05/29/2024 imaging in the emergency room - presumably related to recent surgery/intubation - Dr. Phillips in the ER reviewed this with [facility] (Sara); recommend outpatient bronchoscopy - transfer to higher level of care with any new symptoms/decompensation Status: Acute (9) Renal mass: Problem details: - incidentally noted 05/29 - patient and aware, outpatient f/u Status: Acute Plan - per above - updated by phone, questions answered Subjective Date Seen: 05/30/24 Interval history: Reilly was admitted to the hospital yesterday for weakness in the setting of recent GI illness (vomiting/diarrhea) and pancytopenia. Notable findings since admission: - hypoxia, requiring low dose supplemental oxygen on admission. No PE or infiltrate on imaging - incidental tracheal abnormality on imaging, asymptomatic. Outpatient bronchoscopy with Pulmonology recommended - concern for ETOH withdrawal, on CIWA precautions and received Phenobarbital x1 on 05/29 in addition to home Gabapentin - elevated Blood Pressure, improving 05/30 HIV, folate, and peripheral smear pending. B12 lower limit of normal. TTE today. Exam Narrative: Exam Narrative: GEN: Alert and answering questions appropriately HEENT: EOMIs bilaterally, no scleral icterus. Normal ROM of neck, no adenopathy in cervical or clavicular regions CV: RRR, No concerning murmurs R: LCTA bilaterally without concerning wheezing Ext: Wearing BLE kyree hose Skin: No concerning skin lesions or rashes on exposed skin Neuro: No focal deficits, no asterixis Psych: Appears mildly anxious Const: Vital Signs, click to edit/add: Vital Signs - 24 hr 05/29/24 07:54 05/29/24 08:18 05/29/24 08:30 Temperature Pulse Rate 63 74 Pulse Rate [Left P ulse Oximeter] Pulse Rate [Right Brachial] Respiratory Rate Blood Pressure Blood Pressure [Le ft Arm] Blood Pressure [Ri ght Arm] Pulse Oximetry 96 97 94 Oxygen Delivery Me thod Oxygen Flow Rate 05/29/24 08:32 05/29/24 08:33 05/29/24 08:45 Temperature Pulse Rate 82 75 67 Pulse Rate [Left P ulse Oximeter] Pulse Rate [Right Brachial] Respiratory Rate 22 Blood Pressure 177/99 H Blood Pressure [Le ft Arm] Blood Pressure [Ri ght Arm] Pulse Oximetry 94 93 93 Oxygen Delivery Me thod Oxygen Flow Rate 05/29/24 09:00 05/29/24 09:01 05/29/24 09:30 Temperature Pulse Rate 79 68 Pulse Rate [Left P ulse Oximeter] Pulse Rate [Right Brachial] Respiratory Rate Blood Pressure 175/98 H Blood Pressure [Le ft Arm] Blood Pressure [Ri ght Arm] Pulse Oximetry 86 L 84 L 86 L Oxygen Delivery Me thod Room Air Nasal [place] n[place] Oxygen Flow Rate 1 05/29/24 09:34 05/29/24 09:35 05/29/24 09:45 Temperature Pulse Rate 66 71 71 Pulse Rate [Left P ulse Oximeter] Pulse Rate [Right Brachial] Respiratory Rate Blood Pressure 172/93 H Blood Pressure [Le ft Arm] Blood Pressure [Ri ght Arm] Pulse Oximetry 94 93 94 Oxygen Delivery Me thod Nasal Cannula Nasal Cannula Oxygen Flow Rate 1 1 05/29/24 10:00 05/29/24 10:01 05/29/24 10:15 Temperature Pulse Rate 86 78 89 Pulse Rate [Left P ulse Oximeter] Pulse Rate [Right Brachial] Respiratory Rate Blood Pressure 167/100 H Blood Pressure [Le ft Arm] Blood Pressure [Ri ght Arm] Pulse Oximetry 96 95 96 Oxygen Delivery Me thod Nasal Cannula Nasal Cannula Nasal Cannula Oxygen Flow Rate 1 1 1 05/29/24 10:30 05/29/24 10:31 05/29/24 10:45 Temperature Pulse Rate 78 75 73 Pulse Rate [Left P ulse Oximeter] Pulse Rate [Right Brachial] Respiratory Rate 20 Blood Pressure 154/99 H Blood Pressure [Le ft Arm] Blood Pressure [Ri ght Arm] Pulse Oximetry 95 95 93 Oxygen Delivery Me thod Oxygen Flow Rate 05/29/24 11:00 05/29/24 11:01 05/29/24 11:46 Temperature 98.3 F Pulse Rate 74 92 Pulse Rate [Left P ulse Oximeter] Pulse Rate [Right Brachial] 83 Respiratory Rate 26 H Blood Pressure 169/92 H Blood Pressure [Le ft Arm] Blood Pressure [Ri ght Arm] 180/104 H Pulse Oximetry 93 92 91 Oxygen Delivery Me thod Nasal Cannula Oxygen Flow Rate 2 05/29/24 11:46 05/29/24 12:28 05/29/24 14:21 Temperature 98.3 F 99.9 F H Pulse Rate Pulse Rate [Left P ulse Oximeter] 76 Pulse Rate [Right Brachial] 83 Respiratory Rate 26 H 26 H 18 Blood Pressure Blood Pressure [Le ft Arm] 170/99 H Blood Pressure [Ri ght Arm] 180/104 H Pulse Oximetry 91 91 93 Oxygen Delivery Me thod Nasal Cannula Nasal Cannula Nasal Cannula Oxygen Flow Rate 2 2 1 05/29/24 15:00 05/29/24 15:00 05/29/24 15:06 Temperature 99.7 F H Pulse Rate 83 Pulse Rate [Left P ulse Oximeter] 114 H Pulse Rate [Right Brachial] Respiratory Rate 18 22 Blood Pressure Blood Pressure [Le ft Arm] 171/99 H Blood Pressure [Ri ght Arm] Pulse Oximetry 93 95 Oxygen Delivery Me thod Nasal Cannula Nasal Cannula Oxygen Flow Rate 1 1 05/29/24 15:09 05/29/24 15:43 05/29/24 16:00 Temperature 99.2 F 98.3 F Pulse Rate Pulse Rate [Left P ulse Oximeter] 114 H 83 98 Pulse Rate [Right Brachial] 83 Respiratory Rate 22 22 24 Blood Pressure Blood Pressure [Le ft Arm] 1701/99 H 176/86 H Blood Pressure [Ri ght Arm] Pulse Oximetry 95 93 Oxygen Delivery Me thod Nasal Cannula Nasal Cannula Oxygen Flow Rate 1 1 05/29/24 20:00 05/29/24 20:00 05/29/24 20:00 Temperature Pulse Rate 81 Pulse Rate [Left P ulse Oximeter] Pulse Rate [Right Brachial] 88 Respiratory Rate 18 18 Blood Pressure Blood Pressure [Le ft Arm] Blood Pressure [Ri ght Arm] Pulse Oximetry 96 Oxygen Delivery Me thod Nasal Cannula Oxygen Flow Rate 1 05/29/24 20:10 05/29/24 20:10 05/29/24 22:45 Temperature 98.4 F 98.4 F 98.6 F Pulse Rate Pulse Rate [Left P ulse Oximeter] Pulse Rate [Right Brachial] 88 88 76 Respiratory Rate 18 18 20 Blood Pressure Blood Pressure [Le ft Arm] Blood Pressure [Ri ght Arm] 167/97 H 167/97 H 170/107 H Pulse Oximetry 96 96 97 Oxygen Delivery Me thod Nasal Cannula Nasal Cannula Nasal Cannula Oxygen Flow Rate 1 1 1 05/29/24 22:45 05/30/24 03:50 05/30/24 07:00 Temperature 98.6 F 98.2 F Pulse Rate 69 Pulse Rate [Left P ulse Oximeter] Pulse Rate [Right Brachial] 76 84 Respiratory Rate 20 20 Blood Pressure Blood Pressure [Le ft Arm] Blood Pressure [Ri ght Arm] 170/107 H 167/105 H Pulse Oximetry 97 93 Oxygen Delivery Me thod Nasal Cannula Nasal Cannula Oxygen Flow Rate 1 0.5 05/30/24 07:35 05/30/24 07:36 Temperature 98.9 F 98.9 F Pulse Rate Pulse Rate [Left P ulse Oximeter] 82 82 Pulse Rate [Right Brachial] Respiratory Rate 20 20 Blood Pressure Blood Pressure [Le ft Arm] Blood Pressure [Ri ght Arm] 161/106 H 161/106 H Pulse Oximetry 93 93 Oxygen Delivery Me thod Room Air Room Air Oxygen Flow Rate 0 Labs Labs: Laboratory Results - last 24 hr 11/29/24 11/29/24 11/29/24 07:55 08:00 11:17 WBC 2.46 L RBC 3.82 L Hgb 12.6 L Hct 37.8 MCV 99 MCH 33 MCHC 33 RDW Coeff of Josue 13.1 Plt Count 38 L* Neut % (Auto) 57.7 Lymph % (Auto) 23.6 [place] % (Auto) 16.7 H Eos % (Auto) 0.8 Baso % (Auto) 0.8 Neut # (Auto) 1.40 L Lymph # (Auto) 0.60 L [place] # (Auto) 0.40 Eos # (Auto) 0.00 Baso # (Auto) 0.00 Abs Immat Gran (auto) 0.00 Imm/Tot Granulo (auto) 0.4 Diff Slide Review Acceptable Review Absolute Retic 0.06 Percent Retic 1.6 Immature Retic Fraction 5.4 Retic Hgb Equivalent 36.5 H INR 0.90 L APTT 27 D-Dimer Quant (PE/DVT) 6.74 H Sodium 136 Potassium 3.7 Chloride 104 Carbon Dioxide 23 Anion Gap 9 BUN 9 Creatinine 0.6 Estimated Creat Clear 126.67 Estimated GFR 111 Glucose 112 Lactate 2.8 H Calcium 9.5 Magnesium Total Bilirubin 0.5 Direct Bilirubin 0.2 GGT AST 86 H ALT 34 Alkaline Phosphatase 103 Lactate Dehydrogenase Troponin I 0.02 C-Reactive Protein < 0.5 L Total Protein 7.0 Albumin 3.8 Lipase 236 Urine Color Urine Appearance Urine pH Ur Specific [place] Urine Protein Urine Glucose (UA) Urine Ketones Urine Blood Urine Nitrite Urine Bilirubin Urine Urobilinogen Ur Leukocyte Esterase Urine RBC Urine WBC Ur Squamous Epith Cells Urine Bacteria SARS-CoV-2 (PCR) Negative SARS-CoV-2 Influenza Type A (PCR) Negative PCR FLU A Influenza Type B (PCR) Negative PCR FLU B RSV (PCR) Negative PCR RSV Lab Acknowledgement Test Added 05/29/24 05/29/24 05/29/24 11:30 13:26 Unknown WBC RBC Hgb Hct MCV MCH MCHC RDW Coeff of Josue Plt Count Neut % (Auto) Lymph % (Auto) [place] % (Auto) Eos % (Auto) Baso % (Auto) Neut # (Auto) Lymph # (Auto) [place] # (Auto) Eos # (Auto) Baso # (Auto) Abs Immat Gran (auto) Imm/Tot Granulo (auto) Diff Slide Review Absolute Retic Percent Retic Immature Retic Fraction Retic Hgb Equivalent INR APTT D-Dimer Quant (PE/DVT) Sodium Potassium Chloride Carbon Dioxide Anion Gap BUN Creatinine Estimated Creat Clear Estimated GFR Glucose Lactate 0.7 Calcium Magnesium Total Bilirubin Direct Bilirubin GGT AST ALT Alkaline Phosphatase Lactate Dehydrogenase 263 H Troponin I C-Reactive Protein Total Protein Albumin Lipase Urine Color Yellow Urine Appearance Clear Urine pH 7.0 Ur Specific [place] 1.025 Urine Protein 3+ A Urine Glucose (UA) Negative Urine Ketones Negative Urine Blood 2+ A Urine Nitrite Negative Urine Bilirubin Negative Urine Urobilinogen 0.2 Ur Leukocyte Esterase Negative Urine RBC 10-25 A Urine WBC 0-2 Ur Squamous Epith Cells None Urine Bacteria Few A SARS-CoV-2 (PCR) Influenza Type A (PCR) Influenza Type B (PCR) RSV (PCR) Lab Acknowledgement Test Added 05/30/24 06:03 WBC 4.14 L RBC 3.50 L Hgb 11.5 L Hct 35.2 L MCV 101 H MCH 33 MCHC 33 RDW Coeff of Josue 13.1 Plt Count 40 L* Neut % (Auto) 69.1 Lymph % (Auto) 15.7 L [place] % (Auto) 12.8 H Eos % (Auto) 1.7 Baso % (Auto) 0.2 Neut # (Auto) 2.90 Lymph # (Auto) 0.60 L [place] # (Auto) 0.50 Eos # (Auto) 0.10 Baso # (Auto) 0.00 Abs Immat Gran (auto) 0.00 Imm/Tot Granulo (auto) 0.5 Diff Slide Review Acceptable Review Absolute Retic Percent Retic Immature Retic Fraction Retic Hgb Equivalent INR 1.03 APTT D-Dimer Quant (PE/DVT) Sodium 132 L Potassium 3.5 L Chloride 104 Carbon Dioxide 25 Anion Gap 3 L BUN 7 Creatinine 0.8 Estimated Creat Clear 95.00 Estimated GFR 101 Glucose 87 Lactate Calcium 8.2 L Magnesium 1.0 L Total Bilirubin 0.4 Direct Bilirubin 0.2 GGT 101 H AST 67 H ALT 26 Alkaline Phosphatase 66 Lactate Dehydrogenase Troponin I C-Reactive Protein Total Protein 5.7 L Albumin 2.9 L Lipase Urine Color Urine Appearance Urine pH Ur Specific [place] Urine Protein Urine Glucose (UA) Urine Ketones Urine Blood Urine Nitrite Urine Bilirubin Urine Urobilinogen Ur Leukocyte Esterase Urine RBC Urine WBC Ur Squamous Epith Cells Urine Bacteria SARS-CoV-2 (PCR) Influenza Type A (PCR) Influenza Type B (PCR) RSV (PCR) Lab Acknowledgement
[2024-05-30] MEDS: GABAPENTIN 300 MG CAPSULE PO ×3 (08:22→20:38)
[2024-05-30] MEDS: MULTIVITAMIN/MINERALS 1 TABLET 1 TAB PO (08:22)
[2024-05-30] MEDS: METOPROLOL SUCCINATE (XL) 25 MG TAB PO ×2 (08:22→20:38)
[2024-05-30 08:59] LABS: Vitamin B12* 283 pg/mL (243-894)
[2024-05-30] MEDS: SPIRONOLACTONE 25 MG TABLET PO (10:56)
[2024-05-30] MEDS: NICOTINE 7 MG PATCH 1 PATCH TRANSDERMA (12:23)
[2024-05-30] MEDS: THIAMINE 100 MG TABLET PO (12:23)
[2024-05-30] MEDS: OMEPRAZOLE 20 MG CAPSULE DR PO (17:18)
[2024-05-30] MEDS: TERAZOSIN HCL 5 MG CAPSULE PO (17:18)
[2024-05-30] MEDS: LOSARTAN POTASSIUM 50 MG TABLET PO (17:18)
--- NOTE | 2024-05-30 18:14 | PC.NURSE ---
Pt alert and oriented; minus the date. Pt SBA with gait belt and cane. Pt pleasant and cooperative. Pt up in chair x 3 during shift. Pt?s family at bedside this afternoon. Pt?s CWAW scores during shift were 2's.?
[2024-05-30] MEDS: MAGNESIUM OXIDE 400 MG TABLET PO (20:39)
[2024-05-30] MEDS: CELECOXIB 200 MG CAPSULE PO (20:40)
[2024-05-30] MEDS: SODIUM CHLORIDE 0.9 % (FLUSH) 10 ML SYRINGE 5 ML IVF (20:41)
[2024-05-31] VITALS (7 sets, daily range): BP systolic 172–179; BP diastolic 101–113; PULSE 68–81; RESP 16–20; TEMP 36.7–37.1; O2SAT 91–96
[2024-05-31 06:43] LABS: Basophils Percent Auto 0.5 % (0.0-3.0); Eosinophils Percent Auto 2.1 % (0.0-7.0); Hematocrit 36.3 % (37.0-53.0); Hemoglobin* 12.2 gm/dL (13.5-17.5); Immature Granulocytes Pct Auto 0.3 %; Lymphocytes Percent Auto 20.8 % (20-44); Mean Corpuscular HGB Conc 34 gm/dL (32-36); Mean Corpuscular Hemoglobin 33 pg (26-34); Mean Corpuscular Volume 99 fL (80-100); Monocytes Percent Auto 14.6 % (0.0-11.0); Neutrophils Percent Auto 61.7 % (42.0-72.0); RDW Coefficient of Variation % 12.7 % (11.5-15.5); Red Blood Count 3.67 m/uL (4.30-5.90); White Blood Count* 3.84 K/uL (4.50-11.00)
[2024-05-31 06:51] LABS: Chloride* 104 mmol/L (96-114); Potassium* 3.3 mmol/L (3.6-5.1); Sodium* 134 mmol/L (135-149)
[2024-05-31 06:53] LABS: Anion Gap 6 mEq/L (7-15); Aspartate Amino Transferase* 62 U/L (12-35); Bilirubin Total* 0.4 mg/dL (0.1-1.5); Carbon Dioxide* 24 mmol/L (20-32); Creatinine* 0.7 mg/dL (0.5-1.5); Est. Creatinine Clearance* 108.57; Estimated Glomerular Filt Rate 105 ml/min; Total Protein* 5.9 g/dL (6.0-8.3)
[2024-05-31 06:54] LABS: Alanine Aminotransferase* 25 U/L (4-50); Alkaline Phosphatase* 78 U/L (40-150); Blood Urea Nitrogen* 10 mg/dL (7-30); Calcium* 8.7 mg/dL (8.4-10.6); Glucose* 93 mg/dL (60-115); Magnesium* 1.3 mg/dL (1.5-2.6)
[2024-05-31 07:04] LABS: INR 0.96 (0.91-1.10); Prothrombin Time 13.4 Seconds
[2024-05-31 07:16] LABS: Platelet Count* 42 K/uL (140-440); Slide Review Reflex Yes
[2024-05-31 07:22] LABS: Slide Review Acceptable Review (Acceptable)
--- NOTE | 2024-05-31 07:25 | PC.NURSE ---
Pt alert and oriented x3. Afebrile. Pt denies pain, chest pain, SOB, and N/V. Pt scoring between 1-4 on CIWAs. Pt is up SBA with walker and gait belt, voiding, and tolerating a regular diet. Updated Celine on high blood pressures.
[2024-05-31] MEDS: MAGNESIUM IV 2 GM/50 ML PIGGYBACK IVPB (07:47)
[2024-05-31] MEDS: SODIUM CHLORIDE 0.9 % (FLUSH) 10 ML SYRINGE 5 ML IVF (07:50)
[2024-05-31] MEDS: CELECOXIB 200 MG CAPSULE PO (08:40)
[2024-05-31] MEDS: SPIRONOLACTONE 25 MG TABLET PO (08:40)
[2024-05-31] MEDS: METOPROLOL SUCCINATE (XL) 25 MG TAB PO (08:40)
[2024-05-31] MEDS: MAGNESIUM OXIDE 400 MG TABLET PO (08:40)
[2024-05-31] MEDS: GABAPENTIN 300 MG CAPSULE PO (08:40)
[2024-05-31] MEDS: MULTIVITAMIN/MINERALS 1 TABLET 1 TAB PO (08:40)
[2024-05-31] MEDS: THIAMINE 100 MG TABLET PO (11:35)
[2024-05-31] MEDS: NICOTINE 7 MG PATCH 1 PATCH TRANSDERMA (11:35)
--- NOTE | 2024-05-31 12:17 | PC.NURSE ---
Pt alert and oriented. Pt had no complaints of pain. Pt's CWAW score 1-2. Pt's IV removed; catheter intact. Pt up with SBA with cane. Pt's at bedside. Pt's nicotine patch removed. Pt discharged home with .
--- NOTE | 2024-05-31 13:35 | P.DS_ITS ---
DS: Providers Provider Date Seen: 05/31/24 Date of admission: 05/29/24 12:25 Primary care physician: Ward Kimble MD Admitting Clinician: Tiffanie Berger MD Consults: PT, OT, SW, Nutrition Attending Physician on discharge: Tiffanie Berger MD Date of Discharge: 05/31/24 DS: Diagnosis Discharge Diagnosis (1) Pancytopenia: Status: Acute Problem details: - most likely 2/2 bone marrow suppression from ETOH use, ddx includes infection, malignancy - peripheral smear and HIV pending upon discharge (2) Alcohol use disorder: Status: Acute Problem details: - daily ETOH, last drink 05/28 at 1930 - associated findings: pancytopenia, hyponatremia, elevated AST - continue Gabapentin, follow CIWA with prn Ativan - initiated Phenobarbital 05/29, did not require any further doses, CIWA scores remained low during stay - possible cirrhosis on u/s 05/29, recommend outpatient referral to GI for management - current MELD score of 6 (3) Acute hypoxic respiratory failure: Status: Acute Problem details: - source unclear, does not appear related to incidental tracheal mass - no acute infectious process on Chest CT, negative COVID/flu/influenza - resolved 05/30/24, did not require supplemental oxygen upon discharge (4) HFrEF (heart failure with reduced ejection fraction): Status: Acute Problem details: - HFrEF per TTE 05/30 (formal results below) - continue ARB and BB, added Spironolactone as GMDT + liver disease Final Impressions: 1. Normal LV size, borderline wall thickness, estimated EF of ~45%. 2. Mild global hypokinesis. No regional wall motion abnormality detected. 3. Normal RV size, borderline systolic function. 4. The mitral valve is normal, mild regurgitation. 5. Unable to estimate PA pressure. 6. Normal estimted PA pressure. - continue ARB and BB, add Spironolactone for GMDT + liver disease (5) Weakness: Status: Acute Problem details: - therapies followed during stay, no additional recommendations (6) Hypertension: Status: Acute Problem details: - Hypotensive in March after surgery, Amlodipine and HCTZ stopped at that time - continue current home medications (metoprolol and losartan), added Spironolactone (7) Mass of trachea: Status: Acute Problem details: - incidentally noted on 05/29/2024 imaging in the emergency room - presumably related to recent surgery/intubation - Dr. Phillips in the ER reviewed this with [facility] (Sara from [facility]); recommend outpatient bronchoscopy (8) Hematuria: Status: Acute Problem details: - related to thrombocytopenia vs other renal process - ultrasound reveals incidental R renal mass, outpatient workup recommended - no flank pain (9) Renal mass: Status: Acute Problem details: - incidentally noted 05/29 - patient and aware, outpatient f/u DS: Summary Hospital Course Hospital Course: Reilly was admitted to the hospital on 05/29 for weakness in the setting of recent GI illness (vomiting/diarrhea) and pancytopenia. Known history of daily alcohol abuse. Notable findings during stay: - WBC, Hgb, Platelets trending upward on discharge, no acute bleeding. HIV, Folate, Peripheral smear pending upon discharge - hypoxia, required low dose supplemental oxygen on admission. No PE or infiltrate on imaging, transitioned to RA on hospital day 1 - incidental tracheal abnormality on imaging, asymptomatic. Outpatient bronchoscopy with Pulmonology recommended - concern for ETOH withdrawal, on CIWA precautions and received Phenobarbital x1 on 05/29 in addition to home Gabapentin. Did not have significantly elevated CIWA scores during stay - elevated Blood Pressure, improving 05/30. Added Spironolactone to regimen given HFrEF and concern for cirrhosis - Fatty liver disease + likely cirrhosis on imaging - EF 45% on 05/30 TTE; continued Losartan and Metoprolol, Spironolactone added to regimen - recent back surgery, doing well from that standpoint Extensive discussions held with patient and regarding the importance of alcohol cessation for the above findings. Patient is motivated for sobriety. He is seeing his PCP next week for follow-up. Status at Discharge Functional status at discharge: independent ambulation Overall status at discharge: patient is progressing back to baseline Time Spent with Patient Time attestation: Total time spent providing and/or coordinating discharge services: Time spent: Greater than 30 minutes Specific discharge activities: Medication reconciliation, patient and caregiver Education Exam Narrative: Exam Narrative: GEN: Alert and laying comfortably in bed, nontoxic HEENT: EOMIs bilaterally, no scleral icterus, oropharynx clear, no adenopathy CV: RRR, No concerning murmurs R: LCTA bilaterally without concerning wheezing Ext: Trace bilateral lower extremity edema, wearing Alexander hose Skin: No evidence of spontaneous bleeding Neuro: No resting tremor, no asterixis Psych: Appropriate Const: Vital Signs, click to edit/add: Vital Signs - 24 hr 05/30/24 14:37 05/30/24 15:00 05/30/24 15:39 Temperature 98.1 F 98.1 F Pulse Rate 94 Pulse Rate [Left P ulse Oximeter] 94 94 Respiratory Rate 20 20 Blood Pressure [Le ft Arm] Blood Pressure [Ri ght Arm] 167/98 H 167/98 H Pulse Oximetry 95 95 Oxygen Delivery Me thod Room Air Room Air Oxygen Flow Rate 0 0 05/30/24 15:44 05/30/24 15:44 05/30/24 19:45 Temperature 98.1 F Pulse Rate Pulse Rate [Left P ulse Oximeter] 88 Respiratory Rate 20 20 16 Blood Pressure [Le ft Arm] 166/99 H Blood Pressure [Ri ght Arm] Pulse Oximetry 95 93 Oxygen Delivery Me thod Room Air Room Air Oxygen Flow Rate 0 05/30/24 22:45 05/30/24 22:50 05/30/24 22:50 Temperature 97.9 F Pulse Rate 83 Pulse Rate [Left P ulse Oximeter] 90 Respiratory Rate 18 18 Blood Pressure [Le ft Arm] Blood Pressure [Ri ght Arm] 173/97 H Pulse Oximetry 95 95 Oxygen Delivery Me thod Room Air Room Air Oxygen Flow Rate 0 05/31/24 02:49 05/31/24 07:00 05/31/24 07:40 Temperature 98.1 F Pulse Rate 69 Pulse Rate [Left P ulse Oximeter] 78 Respiratory Rate 16 20 Blood Pressure [Le ft Arm] 174/103 H Blood Pressure [Ri ght Arm] 172/111 H Pulse Oximetry 91 94 Oxygen Delivery Me thod Room Air Room Air Oxygen Flow Rate 0 0 05/31/24 07:41 05/31/24 07:43 05/31/24 10:38 Temperature 98.7 F 98.7 F 98.3 F Pulse Rate Pulse Rate [Left P ulse Oximeter] 81 81 68 Respiratory Rate 20 20 20 Blood Pressure [Le ft Arm] Blood Pressure [Ri ght Arm] 177/113 H 177/113 H 179/101 H Pulse Oximetry 94 94 96 Oxygen Delivery Me thod Room Air Room Air Room Air Oxygen Flow Rate 0 05/31/24 10:39 Temperature 98.3 F Pulse Rate Pulse Rate [Left P ulse Oximeter] 68 Respiratory Rate 20 Blood Pressure [Le ft Arm] Blood Pressure [Ri ght Arm] 179/101 H Pulse Oximetry 96 Oxygen Delivery Me thod Room Air Oxygen Flow Rate 0 DS: Data Data Completed and Pending Labs on day of discharge: Labs from last 24 hours 05/31/24 06:07 WBC 3.84 L RBC 3.67 L Hgb 12.2 L Hct 36.3 L MCV 99 MCH 33 MCHC 34 RDW Coeff of Josue 12.7 Plt Count 42 L* Neut % (Auto) 61.7 Lymph % (Auto) 20.8 [place] % (Auto) 14.6 H Eos % (Auto) 2.1 Baso % (Auto) 0.5 Neut # (Auto) 2.40 Lymph # (Auto) 0.80 L [place] # (Auto) 0.60 Eos # (Auto) 0.10 Baso # (Auto) 0.00 Abs Immat Gran (auto) 0.00 Imm/Tot Granulo (auto) 0.3 Diff Slide Review Acceptable Review INR 0.96 Sodium 134 L Potassium 3.3 L Chloride 104 Carbon Dioxide 24 Anion Gap 6 L BUN 10 Creatinine 0.7 Estimated Creat Clear 108.57 Estimated GFR 105 Glucose 93 Calcium 8.7 Magnesium 1.3 L Total Bilirubin 0.4 AST 62 H ALT 25 Alkaline Phosphatase 78 Total Protein 5.9 L Albumin 3.0 L Discharge Plan Discharge Disposition: Home, Self-Care Date of Admission: 05/29/24 12:25 Attending Provider on Discharge: Tiffanie Berger Primary Care Provider: Ward Kimble Condition: Improved Anticipated Discharge Date/Time: 05/31/24 08:55 Discharge Medications: New spironolactone 25 mg Tablet 25 mg PO DAILY Qty: 30 0RF lorazepam 1 mg Tablet 1 mg PO Q8H PRNQty: 15 0RF nicotine 7 mg/24 hr Patch 24 Hour 1 patch transdermal Q24H Qty: 30 0RF Continued terazosin 5 mg capsule 5 mg PO DAILY@17 losartan 50 mg tablet 50 mg PO DAILY@17 celecoxib 200 mg capsule 200 mg PO BID gabapentin 300 mg capsule 300 mg PO TID omeprazole 20 mg capsule,delayed release(DR/EC) 20 mg PO DAILY@17 magnesium oxide 400 mg (241.3 mg magnesium) tablet 400 mg PO BID metoprolol succinate 50 mg tablet extended release 24 hr 50 mg PO DAILY@17 Discharge Orders: Discharge Order (Routine); Ordered 05/31/24 Ordered By: Tiffanie Berger Patient Education: Spironolactone (By mouth), Lorazepam (By mouth), Nicotine (Absorbed through the skin), Abuse of Alcohol (DC), Pancytopenia (DC) Additional Instructions: We recommend complete alcohol abstinence at this time given your blood counts, heart failure, and liver disease. Keep your appointment with Dr. Kimble on Saturday to go over hospital findings (he will help with a GI referral and a recheck of the incidental kidney mass we saw in the hospital) and new medications. The Pulmonology team will call you to set up an outpatient bronchoscopy for the incidental tracheal mass that was seen on your chest CT. The clinic is [facility] and their phone number is [phone]. Activity Level: Activity as Tolerated and No strenuous activity Activity Detail: per previous back surgery restrictions Discharge Diet: Regular Follow Up Appointments: Ward Kimble MD [Primary Care Provider] - Forms: Spare to Share Info Instructions
[2024-06-01 04:31] LABS: HIV 1/2/P24 Combo Screen* Negative (Negative)
--- NOTE | 2024-06-01 16:47 | PC.SOCIAL ---
Social work consult: outreach and education social worker called pt today, as requested by the physician, to provide resources for substance abuse treatment options. Pt was busy and asked that this worker call back tomorrow at 1:30pm. Social work to follow-up as needed.
--- NOTE | 2024-06-02 13:48 | PC.SOCIAL ---
Social work equine intern called pt to discuss substance use resources. Pt's requested the resources be sent to her email, [email or web address]. Her phone number is [phone]. Pt and pt's were thankful for the call and resources.
== END 2024-05-31 11:46 | disposition home or self-care (01) | DRG 808 ==
LOC: ED 11:18 → MEDSURG 11:39
PROVIDERS: Admitting Provider Family Medicine; Emergency Provider Family Medicine; PCP Family Medicine; Visit Provider Family Medicine
DX: D61.818 Other pancytopenia (principal); I50.21 Acute systolic (congestive) heart failure; J96.01 Acute respiratory failure with hypoxia; F10.239 Alcohol dependence with withdrawal, unspecified; F10.288 Alcohol dependence with other alcohol-induced disorder; E87.1 Hypo-osmolality and hyponatremia; E86.0 Dehydration; K70.0 Alcoholic fatty liver; K70.30 Alcoholic cirrhosis of liver without ascites; I11.0 Hypertensive heart disease with heart failure; N28.9 Disorder of kidney and ureter, unspecified; R22.1 Localized swelling, mass and lump, neck; R31.9 Hematuria, unspecified; R21 Rash and other nonspecific skin eruption; R19.7 Diarrhea, unspecified; F32.A Depression, unspecified; Z86.73 Personal history of transient ischemic attack (TIA), and cerebral infarction without residual deficits; F17.210 Nicotine dependence, cigarettes, uncomplicated; E78.5 Hyperlipidemia, unspecified; Z96.641 Presence of right artificial hip joint
CPT/HCPCS: 36415; 71046; 71275; 76700; 80048; 80053; 80076; 80306; 81001; 82607; 82746; 82977; 83605; 83615; 83690; 83735; 84443; 84484; 85025; 85045; 85379; 85610; 85730; 86140; 86703; 87086; 87631; 93005; 93306; 94761; 97110; 97112; 97116; 97162; 97166; 97535; 97542; 99284; 99285; A9153; A9270; J2060; J2405; J2470; J2560; J3475; J7030; Q9967; S4990